=== PATIENT | male | born 1985 | race Two or more races ===

== ENCOUNTER 2024-02-10 16:29 | Emergency (ER) | payer OTHER ==
[~2024-02-10] VITALS: Ht 170.2 cm; Wt 97.5 kg
[2024-02-10] MEDS ORDERED: KETOROLAC TROMETHAMINE 30 MG VIAL IM STA (17:16)
== END 2024-02-10 20:04 | disposition home or self-care (01) ==
LOC: ER 16:29
DX: M79.641 Pain in right hand (principal)